=== PATIENT | male | born 1970 | race Caucasian/White ===

== ENCOUNTER 2021-06-06 09:37 | Outpatient (REF) | payer OTHER, SELFPAY ==
[2021-06-06 10:34] LABS: Binax Internal Control QC Valid; Binax Now Covid-19 Ag Negative (Negative)
[2021-06-06 10:35] LABS: Binax Lot number: 9864
== END 2021-06-06 09:38 | disposition home or self-care (01) ==
LOC: HO.LAB 09:37
PROVIDERS: Visit Provider Internal Medicine
DX: Z20.822 Contact with and (suspected) exposure to COVID-19 (principal)
CPT/HCPCS: 36415; C9803

== ENCOUNTER → 2021-12-27 15:26 | Outpatient (BNVA) | payer BC, SELFPAY | PROVIDERS: PCP Internal Medicine; Visit Provider Internal Medicine Cardiovascular Disease | DX: I25.10 Atherosclerotic heart disease of native coronary artery without angina pectoris (principal); I10 Essential (primary) hypertension | CPT/HCPCS: 93005 ==

== ENCOUNTER 2022-12-26 15:15 | Outpatient (AMB) | payer BC, SELFPAY ==
[2022-12-26 15:16] VITALS: BP 120/70; PULSE 87; BMI 43.4
--- NOTE | 2022-12-26 15:16 | A.OFFVIS_ITS ---
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 Overall he has been doing well. He said his blood pressures been well controlled. Diabetes under good control. Remains active. Occasionally gets minor chest discomfort usually with exertion but only last few seconds. No prolonged chest discomfort. Denies any heart failure symptoms. Denies any palpitations. [facility] Medical History CAD (coronary artery disease) Diabetes HLD (hyperlipidemia) HTN (hypertension) Obesity Surgical History Stented coronary artery Social History Alcohol intake: current Alcohol intake frequency: holidays/special occasions only Patient Tobacco Use Status: Never used Tobacco Review of Systems ENT Reports dizziness Card Denies chest pain, Denies chest pain at rest, Denies chest pain with activity, Denies rapid heart rate, Denies pedal edema, Denies edema, Denies leg edema, Denies lightheadedness, Denies palpitations, Denies dyspnea, Denies dyspnea on exertion and Denies orthopnea Resp Denies cough, Denies dyspnea and Denies dyspnea on exertion GI Denies hematochezia and Denies change in stool character Musc Denies abnormal gait, Reports limited range of motion, Reports muscle cramps, Denies muscle weakness, Denies numbness, Denies radiating pain into limb, Denies stiffness and Denies tingling Neuro Denies abnormal gait, Reports dizziness, Denies numbness and Denies tingling Endo Denies palpitations Physical Exam Vital Signs: Last Vital Signs Pulse 87 12/26/22 15:16 BP 120/70 12/26/22 15:16 BMI result Body Mass Index 43.4 Const General: cooperative, comfortable, no acute distress, alert and awake Nutritional Appearance: obese Orientation/consciousness: patient oriented x3 Neck Neck: Yes trachea midline, Yes supple and Yes no JVD Resp Effort & Inspection: normal respiratory effort Auscultation: diminished lung sounds Cardio Jugular venous distension: no JVD Palpation: normal PMI Rate: regular rate Rhythm: regular rhythm Heart sounds: S1 normal heart sound present, S2 normal heart sound present, no click, no gallops and no murmurs GI Inspection: Yes obesity Auscultation: normal bowel sounds Skin General skin exam: no rashes or lesions noted Neuro General: patient oriented x3 and no focal motor deficits Extrem General: Yes no clubbing, cyanosis or edema Office Procedures EKG Details: EKG shows normal sinus rhythm with normal EKG [id number], Complete Assessment & Plan Assessment & Plan (1) CAD (coronary artery disease): Code(s): I25.10 - Atherosclerotic heart disease of [place] coronary artery without angina pectoris Plan: CAD with multivessel PCI for acute coronary syndrome with residual LAD disease. Currently having some atypical symptoms chest discomfort which appear to be exertional but not lasting for long period time. Unlikely to be anginal. Advised to call me if the quality or duration of chest discomfort increases. Continue aggressive medical therapy. Importance of regular physical activity and weight loss was discussed. Continue lifelong aspirin therapy. Continue high-intensity statin therapy with target goal LDL less than 70 mg/dL, closer to 60 mg/dL. Follow-up lipid panel and high sensitivity CRP in near future. Continue aggressive management diabetes goal hemoglobin A1c less than 7% being pursue through office. Continue aggressive blood pressure control. (2) HTN (hypertension): Code(s): I10 - Essential (primary) hypertension Plan: Blood pressure is currently well optimized advised to monitor blood pressure at home maintain a log. Goal blood pressure less than 130/84. Continue current therapy. Low-salt diet was discussed. Continue to participate in physical activity as tolerated along with weight loss program. Will follow up in the clinic in 1 year's time, sooner p.r.n.. Thank you for allowing me to partake in his care Orders: Orders CRP High Sensitivity Today I25.10 - Atherosclerotic heart disease of [place] coronary artery without angina pectoris Lipid Panel Today I25.10 - Atherosclerotic heart disease of [place] coronary artery without angina pectoris Coding Level of Care Code Est Pt Level 4 (20572) Diagnoses CAD (coronary artery disease) I25.10 HTN (hypertension) I10 CPT Codes EKG - CPT: 93438-[id number], Complete ([id number])
== END 2022-12-26 16:14 | disposition home or self-care (01) ==
PROVIDERS: Visit Provider Internal Medicine Cardiovascular Disease
DX: I25.10 Atherosclerotic heart disease of native coronary artery without angina pectoris (principal); I10 Essential (primary) hypertension
CPT/HCPCS: 93010; 99214

== ENCOUNTER → 2022-12-26 15:15 | Outpatient (BNVA) | payer BC, SELFPAY | PROVIDERS: Visit Provider Internal Medicine Cardiovascular Disease | DX: I25.10 Atherosclerotic heart disease of native coronary artery without angina pectoris (principal); I10 Essential (primary) hypertension | CPT/HCPCS: 93005 ==

== ENCOUNTER 2024-01-04 14:57 | Outpatient (AMB) | payer BC, SELFPAY ==
--- NOTE | 2024-01-04 15:02 | A.OFFVIS_ITS ---
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 He recently injured his back and is currently recuperating from that. Otherwise he said he has had no significant cardiac symptoms. Maintains his activity level but has not been able to participate in significant weight loss program. Taking all his medications regularly. Diabetes under adequate control. I do not have his most recent lipid panel. Denies any heart failure symptoms. Denies any palpitations. Denies any prolonged irregular heartbeat. No lightheadedness, syncope. [facility] Medical History Obesity Diabetes HTN (hypertension) CAD (coronary artery disease) HLD (hyperlipidemia) Surgical History Stented coronary artery Social History Alcohol intake: current Alcohol intake frequency: holidays/special occasions only Patient Tobacco Use Status: Never used Tobacco Review of Systems Const Denies chills, Denies fatigue, Denies fever(s), Denies frequent falls, Denies weakness, Denies weight gain and Denies weight loss ENT Denies dizziness Card Denies chest pain, Denies leg edema, Denies lightheadedness, Denies palpitations, Denies dyspnea, Denies dyspnea on exertion, Denies orthopnea and Denies other (loss of consciousness) Resp Denies cough, Denies dyspnea and Denies dyspnea on exertion GI Denies hematochezia and Denies change in stool character Musc Denies abnormal gait, Denies muscle weakness, Denies numbness, Denies radiating pain into limb and Denies tingling Neuro Denies abnormal gait, Denies dizziness, Denies frequent falls, Denies numbness, Denies tingling and Denies weakness Endo Denies fatigue and Denies palpitations Physical Exam Vital Signs: Last Vital Signs Pulse 88 01/04/24 15:03 BP 124/84 01/04/24 15:03 BMI result Body Mass Index 44.1 Const General: cooperative, comfortable, no acute distress, alert and awake Nutritional Appearance: obese Orientation/consciousness: patient oriented x3 Neck Neck: Yes trachea midline, Yes supple and Yes no JVD Resp Effort & Inspection: normal respiratory effort Auscultation: diminished lung sounds Cardio Jugular venous distension: no JVD Palpation: normal PMI Rate: regular rate Rhythm: regular rhythm Heart sounds: S1 normal heart sound present, S2 normal heart sound present, no click, no gallops and no murmurs GI Inspection: Yes obesity Auscultation: normal bowel sounds Skin General skin exam: no rashes or lesions noted Neuro General: patient oriented x3 and no focal motor deficits Extrem General: Yes no clubbing, cyanosis or edema Office Procedures EKG Details: EKG shows normal sinus rhythm with normal EKG [id number], Complete Assessment & Plan Assessment & Plan (1) CAD (coronary artery disease): Code(s): I25.10 - Atherosclerotic heart disease of [place] coronary artery without angina pectoris Category: Medical Plan: CAD with remote stenting of the circumflex artery with no current symptoms although his exercise capacity is somewhat limited. Will suggest a exercise myocardial perfusion imaging in few months after his back has recovered to evaluate for progressive coronary artery disease. Discussed with him about the same. He is agreeable. Advised to participate in more aggressive risk factor modification. Aggressive weight loss program should be pursued. Continue lifelong aspirin therapy. Continue high-intensity statin therapy target goal L DL less than 70 mg/dL. Continue aggressive diabetes management which is being pursue through office. Goal hemoglobin A1c less than 6.4%. Continue aggressive blood pressure control. (2) HTN (hypertension): Code(s): I10 - Essential (primary) hypertension Category: Medical Plan: Blood pressure which is currently well optimized advised to monitor blood pressure at home maintain a log. Goal blood pressure less than 130/84. Low- salt diet was discussed. Recommend to continue to aggressively participate in weight loss program regular physical activity. Advised to call me with any new symptoms. Will follow up in the clinic in 1 year's time, sooner p.r.n.. Thank you for allowing me to partake in his care Orders: Orders Lipid Panel 01/04/24 I25.10 - Atherosclerotic heart disease of [place] coronary artery without angina pectoris CA stress test 01/04/24 I25.10 - Atherosclerotic heart disease of [place] c oronary artery without angina pectoris NM cardiolite stress test 2 Weeks I25.10 - Atherosclerotic heart disease of [place] coronary artery without angina pectoris, R07.9 - Chest pain, unspecified Coding Level of Care Code Est Pt Level 4 (64105) Diagnoses CAD (coronary artery disease) I25.10 HTN (hypertension) I10 CPT Codes EKG - CPT: 80125-Irimwppiopoomipew, Complete ([id number])
[2024-01-04 15:03] VITALS: BP 124/84; PULSE 88; BMI 44.1
== END 2024-01-04 15:34 | disposition home or self-care (01) ==
PROVIDERS: PCP Internal Medicine; Visit Provider Internal Medicine Cardiovascular Disease
DX: I25.10 Atherosclerotic heart disease of native coronary artery without angina pectoris (principal); I10 Essential (primary) hypertension
CPT/HCPCS: 93010; 99214

== ENCOUNTER → 2024-01-04 14:57 | Outpatient (BNVA) | payer BC, SELFPAY | PROVIDERS: PCP Internal Medicine; Visit Provider Internal Medicine Cardiovascular Disease | DX: I25.10 Atherosclerotic heart disease of native coronary artery without angina pectoris (principal); I10 Essential (primary) hypertension; Z79.82 Long term (current) use of aspirin; Z79.899 Other long term (current) drug therapy | CPT/HCPCS: 93005 ==

== ENCOUNTER → 2024-03-21 08:34 | Outpatient (REF) | payer BC, SELFPAY ==
--- NOTE | 2024-03-21 08:36 | CA_ITS ---
Acquisition Time: 2024-03-21 08:56:40 Total Exercise Time: 00:06:15 Test Indications: ATHEROSCLEROTIC HEAR DS OF NATIV Medications: Protocol: JUAN MANUEL Max HR: 131 BPM 79% of Pred: 164 BPM Max BP: 224/090 mmHG Max Work Load: 7.3 METS Exercise stress test with exercise 6 min 15 sec of Juan Manuel protocol, achieving 79% MPHR, with moderate shortness of breath, fatigue and thigh cramping and request to stop, with occassional PVCs, with baseline BP 132/82 and max BP with exercise 224/90 - hypertensive response, ( he did not take Metoprolol tartrate 25mg this am), without EKG changes meeting criteria for ischemia at achieved heart rate. In recovery his BP returned to near baseline. Test reviewed with Dr Treviño. Referred By: Randall Torres Overread By: ARCHANA CRUZ
== END ==
LOC: HO.CARD 08:34
PROVIDERS: PCP Internal Medicine; Visit Provider Internal Medicine Cardiovascular Disease
DX: I25.10 Atherosclerotic heart disease of native coronary artery without angina pectoris (principal)
CPT/HCPCS: 93017

== ENCOUNTER → 2024-03-21 08:36 | Outpatient (BNV) | payer BC, SELFPAY | PROVIDERS: PCP Internal Medicine; Visit Provider Nurse Practitioner Family | DX: I49.3 Ventricular premature depolarization (principal); R06.02 Shortness of breath | CPT/HCPCS: 93016; 93018 ==

== ENCOUNTER 2025-01-07 15:04 | Outpatient (AMB) | payer BC, SELFPAY ==
--- NOTE | 2025-01-07 15:06 | A.OFFVIS_ITS ---
Vital Signs 01/07/25 15:07 Height 5 ft 6 in Weight 271 lb 2.697 oz BMI 43.8 BP 118/82 Blood Pressure Location Lt brachial Position Sitting Pulse 75 Intake Visit Reasons: 1 yr follow up Intake Note: 1 year follow-up with ekg feeling good Allergies nut - unspecified (nut) Allergy (Severe, Verified 12/26/22 15:24) ANAPHYLAXIS Medication List - Last Reconciled 01/07/25 by Randall Torres MD aspirin (Adult Low Dose Aspirin) 81 mg PO DAILY atorvastatin 80 mg PO BEDTIME 90 days bupropion HCl XL 300 mg PO DAILY empagliflozin (Jardiance) 10 mg PO DAILY escitalopram oxalate 20 mg PO DAILY fenofibrate 54 mg PO DAILY metformin ER 1,000 mg PO BID metoprolol tartrate 25 mg PO BID phenytoin sodium extended 100 mg PO TID pioglitazone (Actos) 15 mg PO DAILY HPI Comments Details: Russel comes for follow-up. He has been doing very well from cardiac perspective. He said he had exercises and notices no significant shortness of breath chest pain. He has not been able to lose weight. March last year blood work which showed markedly elevated triglycerides and total cholesterol with elevated LDL. He said he has not stopped taking atorvastatin. He is currently also on fenofibrate therapy. However also noted that his diabetes under control. He is trying to manage that. He says most recent blood work also showed elevated hemoglobin A1c. Do not have his lipid panel. He takes all his medications. Denies any prolonged palpitation irregular heartbeat. No lightheadedness, syncope. [facility] Medical History Obesity Diabetes HTN (hypertension) CAD (coronary artery disease) HLD (hyperlipidemia) Surgical History Stented coronary artery Social History Alcohol intake: current Alcohol intake frequency: holidays/special occasions only Patient Tobacco Use Status: Never used Tobacco Review of Systems Const Denies chills, Denies fatigue, Denies fever(s), Denies frequent falls, Denies weakness, Denies weight gain and Denies weight loss ENT Denies dizziness Card Denies chest pain, Denies leg edema, Denies lightheadedness, Denies palpitations, Denies dyspnea, Denies dyspnea on exertion, Denies orthopnea and Denies other (loss of consciousness) Resp Denies cough, Denies dyspnea and Denies dyspnea on exertion GI Denies hematochezia and Denies change in stool character Musc Denies abnormal gait, Denies muscle weakness, Denies numbness, Denies radiating pain into limb and Denies tingling Neuro Denies abnormal gait, Denies dizziness, Denies frequent falls, Denies numbness, Denies tingling and Denies weakness Endo Denies fatigue and Denies palpitations Physical Exam Vital Signs: Last Vital Signs Pulse 75 01/07/25 15:07 BP 118/82 01/07/25 15:07 BMI result Body Mass Index 43.8 Const General: cooperative, comfortable, no acute distress, alert and awake Nutritional Appearance: obese Orientation/consciousness: patient oriented x3 Neck Neck: Yes trachea midline, Yes supple and Yes no JVD Resp Effort & Inspection: normal respiratory effort Auscultation: diminished lung sounds Cardio Jugular venous distension: no JVD Palpation: normal PMI Rate: regular rate Rhythm: regular rhythm Heart sounds: S1 normal heart sound present, S2 normal heart sound present, no click, no gallops and no murmurs GI Inspection: Yes obesity Auscultation: normal bowel sounds Skin General skin exam: no rashes or lesions noted Neuro General: patient oriented x3 and no focal motor deficits Extrem General: Yes no clubbing, cyanosis or edema Office Procedures EKG Details: EKG shows normal sinus rhythm with incomplete right bundle-branch block othe rwise normal EKG. [id number], Complete Assessment & Plan Assessment & Plan (1) CAD (coronary artery disease): Code(s): I25.10 - Atherosclerotic heart disease of [place] coronary artery without angina pectoris Category: Medical Plan: CAD with remote stenting with premature atherosclerosis in his middle-aged man with no recurrent symptoms suggestive of myocardial ischemia at this point time. However he has uncontrolled metabolic risk factors related to his weight. Discussed with him about management. I think he will benefit from GLP 1 antagonist such as Ozempic or Wegovy to help him participate in weight loss program but more importantly help manage his metabolic syndrome and his sugars as well as lipid parameters and reduce his vascular risk. This was discussed with him. He will pursue this through your office. Continue aggressive cholesterol modification. Advise to obtain lipid panel from your office that was done recently. If his triglycerides are markedly elevated I would suggest to start on Vascepa therapy. Continue high-intensity statin therapy. Continue aggressive blood pressure control and aggressive diabetes management. May benefit from continuous glucose monitoring. Continue lifelong aspirin therapy. Advised to call me with any worsening symptoms. (2) HTN (hypertension): Code(s): I10 - Essential (primary) hypertension Category: Medical Plan: Hypertension which is currently well optimized advised to monitor blood pressure at home maintain a log. Goal blood pressure less than 130/84. Low-salt diet was discussed. Continue participate in aggressive lifestyle modification with increase aerobic activity and weight loss program. Will follow up in the clinic in 1 year's time, sooner p.r.n.. Thank you for allowing me to partake in his care Coding Level of Care Code Est Pt Level 4 (52576) Complex EM visit Add On G2211 Diagnoses CAD (coronary artery disease) I25.10 HTN (hypertension) I10 CPT Codes EKG - CPT: 24488-[id number], Complete ([id number])
[2025-01-07 15:07] VITALS: BP 118/82; PULSE 75; BMI 43.8
== END 2025-01-07 15:31 | disposition home or self-care (01) ==
LOC: HO.HCS 15:04
PROVIDERS: PCP Internal Medicine; Visit Provider Internal Medicine Cardiovascular Disease
DX: I25.10 Atherosclerotic heart disease of native coronary artery without angina pectoris (principal); I10 Essential (primary) hypertension
CPT/HCPCS: 93010; 99214

== ENCOUNTER → 2025-01-07 15:04 | Outpatient (BNVA) | payer BC, SELFPAY | PROVIDERS: PCP Internal Medicine; Visit Provider Internal Medicine Cardiovascular Disease | DX: I25.10 Atherosclerotic heart disease of native coronary artery without angina pectoris (principal) | CPT/HCPCS: 93005 ==